=== PATIENT | female | born 1985 | race Caucasian/White ===

== ENCOUNTER 2024-05-20 14:47 | Observation (INO) ==
--- NOTE | 2024-05-20 16:07 | Emergency Department Note ---
Impression & Plan Incarcerated ventral hernia ED Provider Note NAME: RACHEL GONZALEZ AGE: 38 SEX: Female INFORMANT: Patient ED PROVIDER(S): Farrukh Gee MD CHIEF COMPLAINT: Abdominal pain PLAN: Disposition: Admitted Outpatient prescription management: none Referral: None MEDICAL DECISION MAKING: patient presented because of abdominal pain on examination she had A nonreducible hernia above the bellybutton. Urinalysis was concerning for UTI. Patient is not . She was sent for CT imaging. This showed an incarcerated fat-containing ventral hernia. Patient had moderate stool burden. She had no other acute process noted. CBC was unremarkable as was chemistries. Patient was reassessed. She was anxious about treating this here as it might affect her rehab status. I did contact my case resolution specialist who contacted [facility]. She will not lose her rehab progress if admitted here medically. Consultation was made with general surgery, Dr. Sullivan. Patient was recommended for IV antibiotics and medical admission. He will consult on the patient. He was given a dose of IV Rocephin, fluids, and Toradol. Patient did request a nicotine patch and this was ordered. [facility]. Patient was evaluated in the ER and admitted for further management Care/management discussed with: manager planning Level of care consideration(s): After review of the information above and other included data, I feel the patient requires escalation of care to admission Triage Nursing notes: reviewed and agree them. Vital Signs: reviewed and remarkable for no significant abnormalities Additional History obtained from: none Chronic Medical/Social Conditions affecting care: none Prior/ Outside/ External records reviewed: none Differential Diagnosis: Incarcerated hernia, gangrenous hernia, obstruction,Renal colic, UTI, appendicitis, diverticulitis, mesenteric ischemia, aortic pathology, infections, inflammatory bowel disease, PUD, biliary pathology, as well as other pathologies. Diagnostics, independently interpreted by me: ECG: none Cardiac Monitoring: none Medical decision rules: none Imaging studies: CT scan of the abdomen pelvis reveals a fat-containing ventral hernia with stranding and fluid concerning for incarceration. I refer you to the EMR for further details. HPI: 38 year old Female arrives for evaluation of abdominal pain. This started this morning. She states that she has had a hernia above her bellybutton for over a month. Over the last several days it has been protruding more than daniel and she has been able to reduce it herself. Today it became more painful and more prominent. She was unable to push it back into place. Since arrival she notes that there has been some improvement in the discomfort and size. She does note some mild generalized discomfort of her abdomen. She notes some on and off constipation issues recently. Patient is currently at [facility]. She is from [facility]. Pt denies headache, fevers, chills, neck pain, chest pain, breathing difficulties, nausea, vomiting, back pain, melena, hematochezia, urinary symptoms, weakness, rash, or other complaints. PAST MEDICAL HISTORY: See Below, methamphetamine abuse PAST SURGICAL HISTORY: See Below, SOCIAL HISTORY: See Below, HOME MEDICATIONS: See Below ALLERGIES: See Below VITALS: See Below PHYSICAL EXAMINATION: GENERAL: Awake, alert, uncomfortable-appearing, in no distress HENT: Normocephalic, atraumatic. Oropharynx unremarkable. EYES: Normal conjunctiva. Sclera non-icteric. NECK: Inspection normal. Non-tender. Supple. No nuchal rigidity. FROM. No masses. RESPIRATORY: Clear to auscultation. No wheezes. No rales. Normal respiratory effort. CARDIAC: Normal rate. Normal rhythm. No murmurs. No rubs. Extremities warm and well perfused. Pulses equal. No JVD. GI: Soft, non-distended. Mild generalized tenderness to palpation. No rebound or guarding. There is a ventral hernia present above the umbilicus that is tender to palpation. Nonreducible. MUSCULOSKELETAL: Atraumatic. Chest examination reveals no tenderness. The back is symmetrical on inspection without obvious abnormality. There is no CVA tenderness to palpation. No joint edema. LOWER EXTREMITIES: Calves are equal size bilaterally and non-tender. No edema. No discoloration. NEURO: Normal sensorium. No sensory or motor deficits noted. SKIN: No rash or jaundice noted. PROCEDURES: none CRITICAL CARE: none OBSERVATION NOTE: none Past Med/Surg History Problem List (Updated 05/20/24 @ 17:24 by Sharad Francois MD) Constipation Cystitis Tobacco use Amphetamine substance use disorder, moderate, in early remission Incarcerated ventral hernia (Acute) Social History Smoking Status: Current every day smoker Tobacco Type: E-cigarettes / Vaping Preferred Language: Russian Feels Safe at Home: Yes Results & Data (ED) Vital Signs Vital Signs - 24 hr 05/20/24 14:52 05/20/24 15:16 05/20/24 16:00 Temperature 36.6 C Temperature Source Temporal Artery Scan Pulse Rate 89 72 Pulse Rate [Finger] 78 Pulse Rhythm [Finger] Regular Pulse Strength [Finger] Normal Respiratory Rate 18 16 20 Respiratory Effort / Characteristics Non-Labored Non-Labored Spontaneous Respiratory Depth Normal Normal Respiratory Pattern Regular Blood Pressure 111/71 Blood Pressure [Right Arm] 117/75 Blood Pressure Mean 84 Blood Pressure Mean [Right Arm] 89 Blood Pressure Position [Right Arm] Lying Pulse Oximetry 95 97 96 Oxygen Delivery Method Room Air Room Air Room Air Sepsis Recent Fever Within 48 Hours No Sepsis New/Unexplained Change in Mental Status No Sepsis Action Taken by Nursing No Action Required 05/20/24 16:17 05/20/24 17:17 Temperature Temperature Source Pulse Rate 80 Pulse Rate [Finger] 80 Pulse Rhythm [Finger] Regular Pulse Strength [Finger] Normal Respiratory Rate 18 Respiratory Effort / Characteristics Non-Labored Spontaneous Respiratory Depth Normal Respiratory Pattern Regular Blood Pressure Blood Pressure [Right Arm] 116/86 Blood Pressure Mean Blood Pressure Mean [Right Arm] 96 Blood Pressure Position [Right Arm] Lying Pulse Oximetry 96 Oxygen Delivery Method Room Air Sepsis Recent Fever Within 48 Hours Sepsis New/Unexplained Change in Mental Status Sepsis Action Taken by Nursing Laboratory Data 05/20/24 16:12 05/20/24 16:12 Lab Results 05/20/24 05/20/24 Range/Units 15:39 16:12 WBC 6.33 (4.8-10.8) K/ul RBC 3.62 L (4.20-5.40) M/uL Hgb 11.1 L (12.0-16.0) g/dl Hct 33.5 L (37.0-47.0) % MCV 92.5 (80.0-100.0) fL MCH 30.7 (25.0-34.0) pg MCHC 33.1 (32.0-36.0) g/dL RDW Std Deviation 47.5 H (36.4-46.3) fL RDW Coeff of Gloria 14.1 (11.5-14.5) % Plt Count 329 (130-400) K/uL MPV 8.6 L (9.4-12.4) fL Immature Gran % (Auto) 0.3 % Neut % (Auto) 60.3 % Lymph % (Auto) 27.2 % [place] % (Auto) 8.5 % Eos % (Auto) 2.8 % Baso % (Auto) 0.9 % Neut # (Auto) 3.81 (1.40-6.50) K/uL Lymph # (Auto) 1.72 (1.20-3.40) K/uL [place] # (Auto) 0.54 (0.11-0.59) K/uL Eos # (Auto) 0.18 (0.00-0.50) K/uL Baso # (Auto) 0.06 (0.00-0.20) K/uL Immature Gran # (Auto) 0.02 (0.01-0.20) K/uL Sodium 141 (136-145) mmol/L Potassium 4.1 (3.5-5.1) mmol/L Chloride 105 (98-107) mmol/L Carbon Dioxide 34 H (21-32) mmol/L Anion Gap 2 L (3-11) BUN 17 (6-23) mg/dl Creatinine 0.59 L (0.6-1.2) mg/dl Est Cr Clr Drug Dosing 119.8 ml/min eGFR 117.50 BUN/Creatinine Ratio 28.8 H (10-20) Glucose 85 (70-99(Fasting)) mg/dl Calcium 8.8 (8.6-10.3) mg/dl Total Bilirubin 0.2 (0.2-1.0) mg/dl AST 15 (13-39) U/L ALT 13 (7-52) U/L Alkaline Phosphatase 74 (34-104) U/L Total Protein 6.8 (6.0-8.3) gm/dl Albumin 4.1 (3.4-5.0) gm/dl Globulin 2.7 (2.5-4.0) gm/dl Albumin/Globulin Ratio 1.5 (0.9-2) Lipase 9 L (11-82) U/L HCG, Qual Negative (Negative) Urine Color Dark Yellow Urine Appearance Cloudy A (Clear) Urine pH 6.5 (4.5-7.5) Ur Specific [place] 1.021 (1.000-1.030) Urine Protein Trace H (Negative) Urine Glucose (UA) Negative (Negative) Urine Ketones Trace H (Negative) Urine Blood Trace H (Negative) Urine Nitrite Positive A (Negative) Urine Bilirubin Negative (Negative) Urine Urobilinogen Negative (Negative) Ur Leukocyte Esterase 3+ H (Negative) Urine WBC (Auto) >50 H (0-5) /hpf Urine RBC (Auto) 3-5 H (0-2) /hpf U Hyaline Cast (Auto) 3-5 H (0-2) /lpf U Epithel Cells (Auto) 11-20 H (0-2) /hpf Urine Bacteria (Auto) 4+ H (None Seen) Administered Medications Discontinued Medications Sodium Chloride (Nss) 500 mls @ 999 mls/hr IV .Q31M ONE Stop: 05/20/24 17:06 Last Admin: 05/20/24 16:45 Dose: 999 mls/hr Documented By: KO Ceftriaxone Sodium (Rocephin) 2,000 mg in 50 mls @ 100 mls/hr IV NOW STA Stop: 05/20/24 17:05 Last Admin: 05/20/24 16:45 Dose: 100 mls/hr Documented By: KO Ketorolac Tromethamine (Ketorolac Tromethamine 15 Mg/Ml Vial) 15 mg IV NOW ONE Stop: 05/20/24 16:37 Last Admin: 05/20/24 16:45 Dose: 15 mg Documented By: KO Nicotine (Nicotine 14 Mg/24 Hr Patch) 1 patch TD NOW STA Stop: 05/20/24 16:41 Last Admin: 05/20/24 16:49 Dose: 1 patch Documented By: KO Imaging Data Radiologist's Impression: Abdomen/Pelvis CT 05/20/24 15:30 EXAM: CT Abdomen and Pelvis Without Intravenous Contrast INDICATION: Incarcerated umbilical hernia. TECHNIQUE: Axial computed tomography images of the abdomen and pelvis without intravenous contrast. Sagittal and coronal reformatted images were created and reviewed. This CT exam was performed using one or more of the following dose reduction techniques: automated exposure control, adjustment of the mA and/or kV according to patient size, and/or use of iterative reconstruction technique. COMPARISON: No relevant prior studies available. FINDINGS: Limitations: None. Lung bases: No abnormality noted. Pleural space: No visualized pleural effusion or pneumothorax. Heart: No abnormality noted. Mediastinum: No abnormality noted. ABDOMEN: Liver: Lack of intravenous contrast limits detection of some masses. No abnormality noted. Gallbladder and bile ducts: No calcified stones or surrounding fluid. Pancreas: No pancreatic mass, calcification, inflammation or ductal dilation noted. Spleen: No significant abnormality noted. Adrenals: No significant abnormality noted. Kidneys and ureters: No abnormality noted. No stones. No hydronephrosis. No significant perinephric fluid. Stomach and bowel: Moderate to large amounts of formed stool throughout the redundant colon. No bowel obstruction, thickening or inflammatory process noted. Recent meal in the stomach. PELVIS: Appendix: No findings to suggest acute appendicitis. Bladder: Appears normal for the degree of filling. No stones or inflammation. No large mass. Masses may not be detected in the absence of opacification. Reproductive: No abnormalities noted. ABDOMEN and PELVIS: Intraperitoneal space: No free air. No significant fluid collection. Bones/joints: Chronic L5 pars defects noted with grade 1 lumbosacral anterolisthesis. No acute osseous abnormality. Soft tissues: There is a 3.5 cm transverse by 2.1 cm AP by 2.9 cm long right periumbilical hernia containing inflamed mesenteric fat and a trace amount of fluid. It is immediately cranial to jewelry at the navel. Vasculature: No abdominal aortic aneurysm. Lymph nodes: No pathologically enlarged lymph nodes. IMPRESSION: 1. Periumbilical hernia sac with inflamed fat and fluid typical of incarceration. 2. Large amounts of stool in the redundant colon without obstruction. ACT 112: N/A Electronically signed by Breanna Cantu 05-20-2024 4:19 PM Discharge Plan Visit Data Chief Complaint: Abdominal Pain Stated Complaint: ABD PAIN, HERNIA ED Provider: Farrukh Gee Discharge Problem: Incarcerated ventral hernia Forms Stand Alone Forms: My [facility] Referrals Referrals: PCP,NO [Primary Care Provider] -
[2024-05-20 16:18] LABS: Appearance Urine Cloudy (Clear); Bacteria Urine Automated 4+ (None Seen); Bilirubin Urine Negative (Negative); Blood Urine Trace (Negative); Color Urine Dark Yellow; Glucose Urine UA Negative (Negative); Ketones Urine Trace (Negative); Leukocyte Esterase Urine 3+ (Negative); Nitrite Urine Positive (Negative); Protein Urine Trace (Negative); Specific Gravity Urine 1.021 (1.000-1.030); Urobilinogen Urine Negative (Negative); WBC Urine Automated >50 /hpf (0-5); pH Urine 6.5 (4.5-7.5)
--- NOTE | 2024-05-20 16:20 | CT Scan Report ---
EXAM: CT Abdomen and Pelvis Without Intravenous Contrast INDICATION: Incarcerated umbilical hernia. TECHNIQUE: Axial computed tomography images of the abdomen and pelvis without intravenous contrast. Sagittal and coronal reformatted images were created and reviewed. This CT exam was performed using one or more of the following dose reduction techniques: automated exposure control, adjustment of the mA and/or kV according to patient size, and/or use of iterative reconstruction technique. COMPARISON: No relevant prior studies available. FINDINGS: Limitations: None. Lung bases: No abnormality noted. Pleural space: No visualized pleural effusion or pneumothorax. Heart: No abnormality noted. Mediastinum: No abnormality noted. ABDOMEN: Liver: Lack of intravenous contrast limits detection of some masses. No abnormality noted. Gallbladder and bile ducts: No calcified stones or surrounding fluid. Pancreas: No pancreatic mass, calcification, inflammation or ductal dilation noted. Spleen: No significant abnormality noted. Adrenals: No significant abnormality noted. Kidneys and ureters: No abnormality noted. No stones. No hydronephrosis. No significant perinephric fluid. Stomach and bowel: Moderate to large amounts of formed stool throughout the redundant colon. No bowel obstruction, thickening or inflammatory process noted. Recent meal in the stomach. PELVIS: Appendix: No findings to suggest acute appendicitis. Bladder: Appears normal for the degree of filling. No stones or inflammation. No large mass. Masses may not be detected in the absence of opacification. Reproductive: No abnormalities noted. ABDOMEN and PELVIS: Intraperitoneal space: No free air. No significant fluid collection. Bones/joints: Chronic L5 pars defects noted with grade 1 lumbosacral anterolisthesis. No acute osseous abnormality. Soft tissues: There is a 3.5 cm transverse by 2.1 cm AP by 2.9 cm long right periumbilical hernia containing inflamed mesenteric fat and a trace amount of fluid. It is immediately cranial to jewelry at the navel. Vasculature: No abdominal aortic aneurysm. Lymph nodes: No pathologically enlarged lymph nodes. IMPRESSION: 1. Periumbilical hernia sac with inflamed fat and fluid typical of incarceration. 2. Large amounts of stool in the redundant colon without obstruction. ACT 112: N/A Electronically signed by Breanna Cantu 05-20-2024 4:19 PM
[2024-05-20 16:34] LABS: Basophils # (auto) 0.06 K/uL (0.00-0.20); Basophils % (auto) 0.9 %; Eosinophils # (auto) 0.18 K/uL (0.00-0.50); Eosinophils % (auto) 2.8 %; Hematocrit (blood only) 33.5 % (37.0-47.0); Hemoglobin 11.1 g/dl (12.0-16.0); Immature Granulocytes # (auto) 0.02 K/uL (0.01-0.20); Immature Granulocytes % (auto) 0.3 %; Lymphocytes # (auto) 1.72 K/uL (1.20-3.40); Lymphocytes % (auto) 27.2 %; Mean Corpuscular Hemoglobin 30.7 pg (25.0-34.0); Mean Corpuscular Hgb Conc 33.1 g/dL (32.0-36.0); Mean Corpuscular Volume 92.5 fL (80.0-100.0); Mean Platelet Volume 8.6 fL (9.4-12.4); Monocytes # (auto) 0.54 K/uL (0.11-0.59); Monocytes % (auto) 8.5 %; Neutrophils # (auto) 3.81 K/uL (1.40-6.50); Neutrophils % (auto) 60.3 %; Platelet Count 329 K/uL (130-400); RDW Coefficient of Variation 14.1 % (11.5-14.5); RDW Standard Deviation 47.5 fL (36.4-46.3); Red Blood Count 3.62 M/uL (4.20-5.40); White Blood Count 6.33 K/ul (4.8-10.8)
[2024-05-20] MEDS: cefTRIAXone SODIUM 2,000 MG/50 ML BAG IV STA (16:45)
[2024-05-20] MEDS: SODIUM CHLORIDE 0.9% 500 ML IV ONE (16:45)
[2024-05-20] MEDS: KETOROLAC TROMETHAMINE 15 MG/ML VIAL IV ONE (16:45)
[2024-05-20 16:46] LABS: Pregnancy Test, Serum Negative (Negative)
[2024-05-20] MEDS: NICOTINE 14 MG/24 HR PATCH TD STA (16:49)
[2024-05-20 16:50] LABS: Albumin Globulin Ratio 1.5 (0.9-2); Albumin Level 4.1 gm/dl (3.4-5.0); BUN Creatinine Ratio 28.8 (10-20); Bilirubin,Total 0.2 mg/dl (0.2-1.0); Calcium 8.8 mg/dl (8.6-10.3); Creatinine Clr Calc Pharmacy 119.8 ml/min; Globulin 2.7 gm/dl (2.5-4.0); Potassium 4.1 mmol/L (3.5-5.1); Total Protein 6.8 gm/dl (6.0-8.3)
--- NOTE | 2024-05-20 17:13 | History & Physical Report ---
Date of Service May 20, 2024 Assessment & Plan (1) Incarcerated ventral hernia: Plan: -has had known ventral hernia for months to years -has been minimally reducible for past month, fully reducible before that -incarceration could be worsening acutely due to severe constipation, vs. chronic worsening over weeks to months Plan: -general surgery consult, appreciate recs -on OR schedule for 05/21/2024, NPO after midnight -NS at 80cc/hr until procedure -SCDs preop prophylaxis -preop risk optimization: check ECG/chest xray prior to procedure -patient is low risk for medium risk procedure, cardiac risk via ACS NSQUIP calculator is around 0%, patient is medically optimized for procedure (2) Constipation: Plan: -patient has significant constipation on imaging -likely 2/2 dehydration Plan: -start miralax, senna (3) Amphetamine substance use disorder, moderate, in early remission: Plan: -in rehab for it at this time Plan: -will discharge back to rehab (4) Tobacco use: Plan: -14mg nicotine patch ineffective Plan: -increase to 21 mg nicotine patch (5) Cystitis: Plan: -patient has burning with urination with UA suggestive of cystitis Plan: -continue ceftriaxone, 5 day course of abx anticipated Plan Feeding/fluids: regular, NPO after midnight Analgesia: tylenol, lidocaine patch Sedation: na Thromboprophylaxis: SCDs Head up position: na Ulcer prophylaxis: na Glycemic control: na Spontaneous breathing trial: na Bowel care: miralax, senna Indwelling catheter removal: na Deescalation of antibiotics: ceftriaxone I spent a total of 80 minutes in direct patient care, including [id number] time with the patient and/or family, reviewing medical records, ordering and reviewing diagnostic tests, and coordinating care with other healthcare providers. This time includes: history taking, physical examination, medical decision making, counseling, ECG interpretation, imaging interpretation, lab interpretation, orders, and education, excluding time spent in the performance of separately billed services. History of Present Illness Chief Complaint: -abdominal pain, hernia Primary Care Provider: ELSA PCP 38 yo female pmhx of substance use disorder (meth, in remission, currently at rehab), constipation, known ventral hernia who presents for abdominal pain and nonreducible hernia. She lives in [place] and is here for rehab. Patient states that she noticed the pain started this morning and persistently got worse. She states that normally the hernia is at least partially reducible and not painful. She states the hernia was not reducible today and became more tender over the course of the day. No other associated symptoms other than erythema. Does note burning with urination. States she saw her PCP about it, who recommended active surveillance and f/u outpatient with routine surgical consultation. Patient did not establish care with surgeon. Smokes tobacco daily, in rehab for substance use (meth), full code. Of note, patient scared of losing her rehab bed spot, checked on by ED who claim they checked with rehab and she will not lose her spot. Allergies Allergy/AdvReac Type Severity Reaction Status Date / Time No Known Allergies Allergy Unverified 05/20/24 17:23 Home Medications Medication Instructions Recorded Confirmed Type bictegravir 50 mg-emtricitabine 1 tab PO DAILY 05/20/24 05/20/24 History 200 mg-tenofovir alafenam 25 mg tablet (Biktarvy) buprenorphine 8 mg-naloxone 2 mg 1 film buccal BID 05/20/24 05/20/24 History sublingual film (Suboxone) Past Med/Surg History Problem List (Updated 05/20/24 @ 17:35 by Sharad Francois MD) Constipation Cystitis Tobacco use Amphetamine substance use disorder, moderate, in early remission Incarcerated ventral hernia (Acute) Social History Smoking Status: Current every day smoker Tobacco Type: E-cigarettes / Vaping Preferred Language: Cypriot Feels Safe at Home: Yes Review of Systems Review of Systems: CONSTITUTIONAL: Patient denies fevers, chills, sweats and weight changes. EYES: Patient denies any visual symptoms. EARS, NOSE, AND THROAT: No difficulties with hearing. No symptoms of rhinitis or sore throat. CARDIOVASCULAR: Patient denies chest pains, palpitations, orthopnea and paroxysmal nocturnal dyspnea. RESPIRATORY: No dyspnea on exertion, no wheezing or cough. GI: abdominal pain : burning with urination MUSCULOSKELETAL: No myalgias or arthralgias. NEUROLOGIC: No chronic headaches, no seizures. Patient denies numbness, tingling or weakness. PSYCHIATRIC: Patient denies problems with mood disturbance. No problems with anxiety. ENDOCRINE: No excessive urination or excessive thirst. DERMATOLOGIC: Patient denies any rashes or skin changes. Physical Exam Physical Exam: Gen: A&O 3 NAD HEENT: NCAT, EOMI, not icteric. External ears normal. No rhinorrhea. Moist mucous membranes. Neck: Supple, full range of motion, no observable masses, No meningeal sign. Lungs: No Respiratory distress. CV: RRR, no edema. Abdomen: protrusion above umbilicus, tender to palpation, not reducible MSK: No joint swelling, no redness. Skin: No rashes, petechiae, lesions. Normal color per patient. Neuro: Normal Gait, Grossly intact. Psych: Appropriate for situation. Results & Data Results & Data Vital Signs (Past 12 Hours) Vital Signs Temp Pulse Pulse Resp BP BP Pulse Ox 05/20/24 16:17 80 05/20/24 16:00 72 20 96 05/20/24 15:16 78 16 117/75 97 05/20/24 14:52 36.6 C 89 18 111/71 95 O2 Del Method 05/20/24 16:17 05/20/24 16:00 Room Air 05/20/24 15:16 Room Air 05/20/24 14:52 Room Air Laboratory Results -personally reviewed, no leukocytosis, normocytic anemia noted, UA consistent with symptoms of UTI Diagnostic Findings Abdomen/Pelvis CT 05/20/24 15:30 EXAM: CT Abdomen and Pelvis Without Intravenous Contrast INDICATION: Incarcerated umbilical hernia. TECHNIQUE: Axial computed tomography images of the abdomen and pelvis without intravenous contrast. Sagittal and coronal reformatted images were created and reviewed. This CT exam was performed using one or more of the following dose reduction techniques: automated exposure control, adjustment of the mA and/or kV according to patient size, and/or use of iterative reconstruction technique. COMPARISON: No relevant prior studies available. FINDINGS: Limitations: None. Lung bases: No abnormality noted. Pleural space: No visualized pleural effusion or pneumothorax. Heart: No abnormality noted. Mediastinum: No abnormality noted. ABDOMEN: Liver: Lack of intravenous contrast limits detection of some masses. No abnormality noted. Gallbladder and bile ducts: No calcified stones or surrounding fluid. Pancreas: No pancreatic mass, calcification, inflammation or ductal dilation noted. Spleen: No significant abnormality noted. Adrenals: No significant abnormality noted. Kidneys and ureters: No abnormality noted. No stones. No hydronephrosis. No significant perinephric fluid. Stomach and bowel: Moderate to large amounts of formed stool throughout the redundant colon. No bowel obstruction, thickening or inflammatory process noted. Recent meal in the stomach. PELVIS: Appendix: No findings to suggest acute appendicitis. Bladder: Appears normal for the degree of filling. No stones or inflammation. No large mass. Masses may not be detected in the absence of opacification. Reproductive: No abnormalities noted. ABDOMEN and PELVIS: Intraperitoneal space: No free air. No significant fluid collection. Bones/joints: Chronic L5 pars defects noted with grade 1 lumbosacral anterolisthesis. No acute osseous abnormality. Soft tissues: There is a 3.5 cm transverse by 2.1 cm AP by 2.9 cm long right periumbilical hernia containing inflamed mesenteric fat and a trace amount of fluid. It is immediately cranial to jewelry at the navel. Vasculature: No abdominal aortic aneurysm. Lymph nodes: No pathologically enlarged lymph nodes. IMPRESSION: 1. Periumbilical hernia sac with inflamed fat and fluid typical of incarceration. 2. Large amounts of stool in the redundant colon without obstruction. ACT 112: N/A Electronically signed by Breanna Cantu 05-20-2024 4:19 PM Code Status & VTE Plan Code Status full code VTE Prophylaxis Plan VTE Prophylaxis will be ordered: Yes (2) Constipation Constipation type: slow transit constipation Qualified Code(s): K59.01 - Slow transit constipation
[2024-05-20] MEDS: SODIUM CHLORIDE 0.9% 1,000 ML IV SCH (17:28)
--- NOTE | 2024-05-20 17:55 | Discharge Summary ---
Discharge Summary Date of Service May 20, 2024 Principal Dx & Hospital Course #1 = Principal Diagnosis (1) Incarcerated ventral hernia: -has had known ventral hernia for months to years -has been minimally reducible for past month, fully reducible before that -incarceration could be worsening acutely due to severe constipation, vs. chronic worsening over weeks to months Plan: -general surgery consult, appreciate recs -on OR schedule for 05/21/2024, NPO after midnight -NS at 80cc/hr until procedure -SCDs preop prophylaxis -preop risk optimization: check ECG/chest xray prior to procedure -patient is low risk for medium risk procedure, cardiac risk via ACS NSQUIP calculator is around 0%, patient is medically optimized for procedure (2) Constipation: -patient has significant constipation on imaging -likely 2/2 dehydration Plan: -start miralax, senna (3) Amphetamine substance use disorder, moderate, in early remission: -in rehab for it at this time Plan: -will discharge back to rehab (4) Tobacco use: -14mg nicotine patch ineffective Plan: -increase to 21 mg nicotine patch (5) Cystitis: -patient has burning with urination with UA suggestive of cystitis Plan: -continue ceftriaxone, 5 day course of abx anticipated Plan Feeding/fluids: regular, NPO after midnight Analgesia: tylenol, lidocaine patch Sedation: na Thromboprophylaxis: SCDs Head up position: na Ulcer prophylaxis: na Glycemic control: na Spontaneous breathing trial: na Bowel care: miralax, senna Indwelling catheter removal: na Deescalation of antibiotics: ceftriaxone I spent a total of 80 minutes in direct patient care, including [id number] time with the patient and/or family, reviewing medical records, ordering and reviewing diagnostic tests, and coordinating care with other healthcare providers. This time includes: history taking, physical examination, medical decision making, counseling, ECG interpretation, imaging interpretation, lab interpretation, orders, and education, excluding time spent in the performance of separately billed services. Notes For Next Care Provider 38 yo female with pmhx of HIV, substance use disorder, constipation who presents for ventral hernia incarceration. In ED, known ventral hernia noted to be incarcerated, admitted to medicine. Surgery consulted, recommended OR on 05/21/2024. Patient left AMA, understands risks including hernia getting worse, infection, sepsis, up to . Patient accepts these risks. Will need to follow up with surgery, PCP. Medication Changes From Visit -none Admission HPI Per Admitting Provider 38 yo female pmhx of substance use disorder (meth, in remission, currently at rehab), constipation, known ventral hernia who presents for abdominal pain and nonreducible hernia. She lives in [place] and is here for rehab. Patient states that she noticed the pain started this morning and persistently got worse. She states that normally the hernia is at least partially reducible and not painful. She states the hernia was not reducible today and became more tender over the course of the day. No other associated symptoms other than erythema. Does note burning with urination. States she saw her PCP about it, who recommended active surveillance and f/u outpatient with routine surgical consultation. Patient did not establish care with surgeon. Smokes tobacco daily, in rehab for substance use (meth), full code. Of note, patient scared of losing her rehab bed spot, checked on by ED who claim they checked with rehab and she will not lose her spot. Discharge Exam Gen: A&O 3 NAD HEENT: NCAT, EOMI, not icteric. External ears normal. No rhinorrhea. Moist mucous membranes. Neck: Supple, full range of motion, no observable masses, No meningeal sign. Lungs: No Respiratory distress. CV: RRR, no edema. Abdomen: protrusion above umbilicus, tender to palpation, not reducible MSK: No joint swelling, no redness. Skin: No rashes, petechiae, lesions. Normal color per patient. Neuro: Normal Gait, Grossly intact. Psych: Appropriate for situation. Updated Medication List Medication Instructions Recorded Confirmed Type bictegravir 50 mg-emtricitabine 1 tab PO DAILY 05/20/24 05/20/24 History 200 mg-tenofovir alafenam 25 mg tablet (Biktarvy) buprenorphine 8 mg-naloxone 2 mg 1 film buccal BID 05/20/24 05/20/24 History sublingual film (Suboxone) Hospital Stay Data Consultations 05/20/24 16:44 ED Decision to Admit Stat 05/20/24 16:45 Consult General Surgery Stat Diagnostic Imagining Performed 05/20/24 15:30 CT abd pelvis wo con Stat Total Time Total Time Spent Total Time Spent (In Minutes): I spent a total of 35 minutes for discharge in direct patient care, including [id number] time with the patient and/or family, reviewing medical records, ordering and reviewing diagnostic tests, and coordinating care with other healthcare providers. This time includes: history taking, physical examination, medical decision making, counseling, ECG interpretation, imaging interpretation, lab interpretation, orders, and education, excluding time spent in the performance of separately billed services.
--- NOTE | 2024-05-20 18:26 | Emergency Department Note ---
ED Visit Note I was informed by the charge nurse that this patient that originally was going to sign out AGAINST MEDICAL ADVICE decided that she would now like to stay in the hospital secondary to some issues going back to her inpatient rehabilitation facility ([facility]). I went in to speak with the patient and she states that she is willing to stay in the hospital overnight for further management and surgical consultation in regards to her fat-containing hernia for operative repair. Admission had already been arranged therefore I did ask case management to reach out to the hospitalist service and inform them that the patient is now willing to stay and she will not be signing out AMA. Patient was admitted by the [facility] hospitalist service for further management. Derrick Park DO .
[2024-05-20] MEDS: DOCUSATE SODIUM/SENNA 50/8.6MG TAB PO SCH (19:24)
[2024-05-20] MEDS: NICOTINE 21 MG/24 HR TDSY TD SCH (19:24)
[2024-05-20] MEDS ORDERED: MELATONIN 3 MG TAB PO PRN (19:59)
[2024-05-20] MEDS ORDERED: ACETAMINOPHEN 325 MG TAB PO PRN (19:59)
[2024-05-20] MEDS: BUPRENORPHINE/NALOXONE 8/2 MG TAB SL SCH (20:42)
[2024-05-20] MEDS: POLYETHYLENE (MIRALAX) 17 GM PACK PO SCH (20:43)
[2024-05-20 22:33] VITALS: TEMP 98.1; O2SAT 99
--- NOTE | 2024-05-21 07:06 | XRay Report ---
EXAM: XR chest 2V PA/lateral CLINICAL HISTORY: preop risk strat TECHNIQUE: X-ray images of the chest were obtained in 2 views: posteroanterior (PA) and lateral projections. COMPARISON: No prior studies available for comparison. FINDINGS: Pulmonary Parenchyma: Lungs are clear bilaterally. No evidence of consolidation, collapse, or focal opacities. No pulmonary nodules identified. No evidence of pleural effusion or pleural thickening. Heart and Mediastinum: Heart size and shape are normal. No mediastinal widening or masses. No hilar or mediastinal lymphadenopathy. Bony Thorax: The bony thorax appears intact without fractures or deformities. Soft Tissues: Soft tissues overlying the chest wall are unremarkable. IMPRESSION: 1. Unremarkable chest X-ray. 2. No acute cardiopulmonary abnormalities were identified. Electronically signed by Norbert Asher 05-21-2024 07:06 AM
[2024-05-21 07:15] VITALS: PULSE 72; RESP 16
[2024-05-21 07:21] LABS: Hematocrit (blood only) 34.4 % (37.0-47.0); Hemoglobin 11.1 g/dl (12.0-16.0); Mean Corpuscular Hemoglobin 30.2 pg (25.0-34.0); Mean Corpuscular Hgb Conc 32.3 g/dL (32.0-36.0); Mean Corpuscular Volume 93.7 fL (80.0-100.0); Mean Platelet Volume 8.9 fL (9.4-12.4); Platelet Count 306 K/uL (130-400); RDW Coefficient of Variation 14.3 % (11.5-14.5); RDW Standard Deviation 48.9 fL (36.4-46.3); Red Blood Count 3.67 M/uL (4.20-5.40); White Blood Count 6.02 K/ul (4.8-10.8)
[2024-05-21 07:51] LABS: BUN Creatinine Ratio 32.3 (10-20); Calcium 8.3 mg/dl (8.6-10.3); Creatinine Clr Calc Pharmacy 108.8 ml/min
[2024-05-21 08:23] LABS: INR 0.9 (0.9-1.1); Partial Thromboplastin Ratio 0.9; Partial Thromboplastin Time 24 Seconds (21-31); Prothrombin Time 9.9 Seconds (9.0-12.0)
--- NOTE | 2024-05-21 08:58 | Surgery Consultation ---
Date of Consultation May 21, 2024 Assessment & Plan (1) Incarcerated ventral hernia: reducible but omentum chronically tethered within sac no emergent need to repair hernia OK to discharge back to rehab will need outpatient repair of hernia History of Present Illness Attending Physician: Jin Calles DO History of Present Illness This is a 38YO patient admitted with abdominal pain from a known periumbilical hernia. She was sent for CT imaging which showed incarcerated fat within the hernia. I reduced this at bedside but did pop back in, was having less pain with the hernia. Allergies Allergy/AdvReac Type Severity Reaction Status Date / Time No Known Allergies Allergy Unverified 05/20/24 17:23 Home Medications Medication Instructions Recorded Confirmed Type bictegravir 50 mg-emtricitabine 1 tab PO DAILY 05/20/24 05/20/24 History 200 mg-tenofovir alafenam 25 mg tablet (Biktarvy) buprenorphine 8 mg-naloxone 2 mg 1 film buccal BID 05/20/24 05/20/24 History sublingual film (Suboxone) cephalexin 500 mg capsule 500 mg PO QID 5 days #20 caps 05/20/24 Rx nicotine 21 mg/24 hr daily 1 patch transdermal QAM #14 ea 05/20/24 Rx transdermal patch (Nicoderm CQ) sennosides 8.6 mg-docusate sodium 1 tab PO QAM #30 tabs 05/20/24 Rx 50 mg tablet (Senokot-S) Patient History Social History Smoking Status: Current every day smoker Tobacco Type: Cigarettes and E-cigarettes / Vaping Second Hand Exposure: No; Do You Dip or Chew Tobacco: No; Tobacco Cessation Education Requested by Patient: No Hx Alcohol Use: No Hx Substance Use: Yes Substance Use Type Other:: pt used methamphetamine, in remission Preferred Language: Telugu Communication Ability: Effective Chemical Engineering Technologist Required: No Beliefs That Will Affect Care: None Current Living Situation: Rehab Current Living Situation Comment: otherwise lives at home alone Other Information That Helps Us Care for You: No Feels Safe at Home: Yes Safety Concerns: Feels Safe At This Time Assistive Devices: None Review of Systems Constitutional: no fever and no chills Eyes: no problem reported Ear, Nose, Mouth, Throat: no problem reported Respiratory: no cough and no dyspnea Cardiovascular: no chest pain Gastrointestinal: + abdominal pain; no nausea and no vomit ing Genitourinary: no problem reported Musculoskeletal: no back pain Integumentary: no problem reported Neurologic: no localized weakness and no generalized weakness Psychiatric: no behavioral changes Physical Exam Constitutional: WD/WN, vitals as above Eyes: no scleral abnormality ENMT: external ear and nose normal, oropharynx normal Neck: trachea midline Respiratory: normal respiratory effort, lungs clear to auscultation Cardiovascular: RRR, no murmur, no edema Gastrointestinal (Abdomen): Inspection/Auscultation: abdomen normal to inspection, normal bowel sounds and + visible herniation (reducible contents but likely chronically tethered within sac); abdomen not distended Percussion/Palpation: + abdomen tender and abdomen soft Musculoskeletal: Head/Neck/Chest: normocephalic, head atraumatic and neck supple Skin: no rashes, warm and dry Results & Data Vital Signs (Past 12 Hours) Vital Signs Temp Pulse Resp BP BP Pulse Ox O2 Del Method 05/21/24 07:13 36.7 C 72 16 124/76 99 Room Air 05/20/24 21:40 36.7 C 79 18 132/81 99 Room Air 05/20/24 21:00 84 18 125/81 97 Room Air Diagnostic Findings EXAM: CT Abdomen and Pelvis Without Intravenous Contrast INDICATION: Incarcerated umbilical hernia. TECHNIQUE: Axial computed tomography images of the abdomen and pelvis without intravenous contrast. Sagittal and coronal reformatted images were created and reviewed. This CT exam was performed using one or more of the following dose reduction techniques: automated exposure control, adjustment of the mA and/or kV according to patient size, and/or use of iterative reconstruction technique. COMPARISON: No relevant prior studies available. FINDINGS: Limitations: None. Lung bases: No abnormality noted. Pleural space: No visualized pleural effusion or pneumothorax. Heart: No abnormality noted. Mediastinum: No abnormality noted. ABDOMEN: Liver: Lack of intravenous contrast limits detection of some masses. No abnormality noted. Gallbladder and bile ducts: No calcified stones or surrounding fluid. Pancreas: No pancreatic mass, calcification, inflammation or ductal dilation noted. Spleen: No significant abnormality noted. Adrenals: No significant abnormality noted. Kidneys and ureters: No abnormality noted. No stones. No hydronephrosis. No significant perinephric fluid. Stomach and bowel: Moderate to large amounts of formed stool throughout the redundant colon. No bowel obstruction, thickening or inflammatory process noted. Recent meal in the stomach. PELVIS: Appendix: No findings to suggest acute appendicitis. Bladder: Appears normal for the degree of filling. No stones or inflammation. No large mass. Masses may not be detected in the absence of opacification. Reproductive: No abnormalities noted. ABDOMEN and PELVIS: Intraperitoneal space: No free air. No significant fluid collection. Bones/joints: Chronic L5 pars defects noted with grade 1 lumbosacral anterolisthesis. No acute osseous abnormality. Soft tissues: There is a 3.5 cm transverse by 2.1 cm AP by 2.9 cm long right periumbilical hernia containing inflamed mesenteric fat and a trace amount of fluid. It is immediately cranial to jewelry at the navel. Vasculature: No abdominal aortic aneurysm. Lymph nodes: No pathologically enlarged lymph nodes. IMPRESSION: 1. Periumbilical hernia sac with inflamed fat and fluid typical of incarceration. 2. Large amounts of stool in the redundant colon without obstruction.
[2024-05-21] MEDS: cephALEXin 500 MG CAP PO SCH (10:41)
--- NOTE | 2024-05-21 10:50 | Discharge Summary ---
Discharge Summary Date of Service May 21, 2024 Principal Dx & Hospital Course #1 = Principal Diagnosis (1) Ventral hernia, recurrent: (2) Cystitis: (3) Amphetamine substance use disorder, moderate, in early remission: (4) Constipation: (5) Tobacco use: Plan Patient is a 38-year-old female with known history of ventral hernia. Is currently in the area for drug rehab at [facility] for methamphetamine use. Had her hernia become more painful and presented to the emergency room. In the emergency room unable to reduce the hernia immediately. She was referred for further evaluation. Patient was admitted to the hospital. Given IV fluid hydration. She was treated for E. coli cystitis initially with ceftriaxone. Surgical consultation was obtained. On the morning of discharge she was seen by surgery. They were able to reduce the hernia. There is no evidence of gangrene. Her pain had significantly improved. I was contacted by surgery. They felt the patient could be discharged with outpatient follow-up for c onsideration of elective ventral hernia repair. Evidence is limited as to the effectiveness of an abdominal binder, however it may provide the patient with some level of comfort and this was provided to her. She can wear this during the day, may take off at night when in bed. She was tolerating a diet. She can be discharged back to rehab with instructions to follow-up with her surgeon outpatient for elective hernia repair. She will continue Keflex for treatment of her cystitis and also recommended she be on a daily bowel regimen. She will continue her rehabilitation at [facility] for her methamphetamine use disorder. Notes For Next Care Provider Recommend general surgery consultation for evaluation of elective ventral hernia repair when discharged from rehab Medication Changes From Visit Keflex for UTI x 5 days MiraLAX, senna for chronic constipation Admission HPI Per Admitting Provider 38 yo female pmhx of substance use disorder (meth, in remission, currently at rehab), constipation, known ventral hernia who presents for abdominal pain and nonreducible hernia. She lives in [place] and is here for rehab. Patient states that she noticed the pain started this morning and persistently got worse. She states that normally the hernia is at least partially reducible and not painful. She states the hernia was not reducible today and became more tender over the course of the day. No other associated symptoms other than erythema. Does note burning with urination. States she saw her PCP about it, who recommended active surveillance and f/u outpatient with routine surgical consultation. Patient did not establish care with surgeon. Smokes tobacco daily, in rehab for substance use (meth), full code. Of note, patient scared of losing her rehab bed spot, checked on by ED who claim they checked with rehab and she will not lose her spot. Admission Exam Per Admitting Provider See H&P Discharge Exam Constitutional: Alert, nontoxic, fully dressed, anxious to be discharged HEENT: Mucous membranes moist. Lungs: Clear to auscultation CV: S1-S2, regular Abdomen: Soft, minimal tenderness from recent manipulation of hernia by surgery. Nondistended, ventral hernia soft and reduced Extremities: No significant edema Neuro: No focal deficits Psych: Cooperative, normal mood Updated Medication List Medication Instructions Recorded Confirmed Type bictegravir 50 mg-emtricitabine 1 tab PO DAILY 05/20/24 05/20/24 History 200 mg-tenofovir alafenam 25 mg tablet (Biktarvy) buprenorphine 8 mg-naloxone 2 mg 1 film buccal BID 05/20/24 05/20/24 History sublingual film (Suboxone) nicotine 21 mg/24 hr daily 1 patch transdermal QAM #14 ea 05/20/24 Rx transdermal patch (Nicoderm CQ) sennosides 8.6 mg-docusate sodium 1 tab PO QAM #30 tabs 05/20/24 Rx 50 mg tablet (Senokot-S) cephalexin 500 mg capsule 500 mg PO BID #10 caps 05/21/24 Rx polyethylene glycol 3350 17 gram 17 g PO DAILY #30 ea 05/21/24 Rx oral powder packet (Miralax) Hospital Stay Data Consultations 05/20/24 16:44 ED Decision to Admit Stat 05/20/24 16:45 Consult General Surgery Stat Diagnostic Imagining Performed 05/20/24 15:30 CT abd pelvis wo con Stat Reviewed imaging, laboratory and diagnostic studies. Pertinent findings as below. WBC 6.0 Hemoglobin 11.1 Platelets of 306 Electrolytes within normal range Creatinine 0.65 LFTs normal Lipase 9 hCG negative Urine culture preliminarily growing E. coli Pending Results Patient Have Any Pending Studies at Discharge: Yes Discharge Instructions Given to Patient (Per Discharging Provider) Wear abdominal binder during the day. Recommend you establish care with a surgeon in your hometown as soon as you are discharged from rehab to determine the best time to do elective hernia repair. Total Time Total Time Spent Total Time Spent (In Minutes): 24
[2024-05-21 11:02] VITALS: BP 132/81
--- NOTE | 2024-05-21 23:17 | Electrocardiogram Report ---
Test Reason : Blood Pressure : */* mmHG Vent. Rate : 70 BPM Atrial Rate : 70 BPM P-R Int : 148 ms QRS Dur : 92 ms QT Int : 394 ms P-R-T Axes : 61 81 54 degrees QTcB Int : 425 ms Normal sinus rhythm Normal ECG No previous ECGs available Confirmed by Shashi Fay ([id number]) on 05/21/2024 11:16:54 PM Referred By: NO PCP Confirmed By: Shashi Fay
== END 2024-05-21 13:02 | disposition alcohol treatment (31) ==
LOC: ED 14:47 → INTOOBSV 16:55 → SUATTDRO 16:55 → EDINP 16:55 → 3N 19:59